=== PATIENT | male | born 1945 | race Caucasian/White ===

== ENCOUNTER 2021-12-21 13:17 | Outpatient (CLI) | payer MEDICARE ==
[2021-12-21 22:42] LABS: CHLAMYDIA TRACHOMATIS DNA NEGATIVE (NEGATIVE); NEISSERIA GONORRHOEAE DNA NEGATIVE (NEGATIVE)
[2021-12-23 04:08] LABS: RPR Non Reactive (Non Reactive)
[2021-12-23 07:10] LABS: HCV AB 0.1 s/co ratio (0.0-0.9); HIV SCREEN 4TH GENERATION Non Reactive (Non Reactive)
[2021-12-23 08:09] LABS: HSV 1 IGG TYPE SPEC 1.12 index (0.00-0.90)
== END 2021-12-21 13:18 | disposition home or self-care (01) ==
LOC: LAB.S 13:17
PROVIDERS: ATTEND Physician Assistant
DX: Z11.3 Encounter for screening for infections with a predominantly sexual mode of transmission (principal)
CPT/HCPCS: 36415; 86592; 86695; 86696; 86803; 87491; 87591; G0475; 87389; 87661

== ENCOUNTER 2022-09-09 09:47 | Day surgery (SDC) | payer MEDICARE ==
[2022-09-09] MEDS ORDERED: LACTATED RINGERS 1,000 ML IV ONE (10:09)
[2022-09-09] MEDS ORDERED: ACETAMINOPHEN 500 MG TABLET PO ONE (10:13)
[2022-09-09] MEDS ORDERED: LIDOCAINE MPF 2%-EPI 1:200000 20 ML VIAL ONE ×2 (13:03→15:08)
[2022-09-09] MEDS ORDERED: BUPIVACAINE 0.25% PF 10 ML VIAL ONE (13:54)
[2022-09-09] MEDS ORDERED: BUPIVACAINE 0.5% PF 30 ML VIAL ONE (15:08)
--- NOTE | 2022-09-09 15:19 | ANESTHESIA ---
Pre-Anesthesia VS, & Labs - Diagnosis right carpal tunnel syndrome - Procedure right carpal tunnel release Vital Signs: Temp Pulse Resp BP Pulse Ox O2 Flow Rate 36.7 C 73 18 127/93 H 100 09/09/22 10:22 09/09/22 10:22 09/09/22 10:22 09/09/22 10:22 09/09/22 10:22 Height: 5 ft 11 in Weight (kg): 88 kg Body Mass Index: 27.0 BMI Classification: Overweight - NPO >8 hours Home Medications and Allergies Home Medications: Ambulatory Orders Amlodipine Besylate [Norvasc] 5 mg PO DAILY 09/03/22 Aspirin [Aspirin EC] 81 mg PO DAILY 09/03/22 Finasteride [Proscar] 5 mg PO DAILY 09/03/22 Sildenafil Citrate [Sildenafil] 5 mg PO DAILY 09/03/22 Amlodipine Besylate [Norvasc] 5 mg PO DAILY 09/03/22 Aspirin [Aspirin EC] 81 mg PO DAILY 09/03/22 Finasteride [Proscar] 5 mg PO DAILY 09/03/22 Sildenafil Citrate [Sildenafil] 5 mg PO DAILY 09/03/22 Allergies/Adverse Reactions: Allergies Allergy/AdvReac Type Severity Reaction Status Date / Time Penicillins Allergy Anaphylaxis Verified 09/03/22 11:39 tamsulosin [From Flomax] Allergy Respiratory Verified 09/03/22 11:39 Anes History & Medical History - Anesthetic History Anesthesia Complications: reports: No previous complications - Medical History Cardiovascular: reports: Murmur, Other (aortic stenosis) Pulmonary: reports: None Gastrointestinal: reports: None Urinary: reports: Kidney stones Neuro: reports: None Musculoskeletal: reports: None Endocrine/Autoimmune: reports: None Skin: reports: None Smoking Status: Never smoker Psychosocial: reports: Alcohol (occ.) History of Cancer?: No - Surgical History General: reports: Colonoscopy Urologic: reports: Prostatic surgery Orthopedic: reports: Rotator cuff repair Exam General: Alert, Oriented x3, Cooperative, No acute distress Dental: WNL Mouth Openin Fingerbreadth Neck Mobility: Normal Mallampati classification: III Thyromental Distance: 4-6 cm Mental/Cognitive Status: Alert/Oriented X3, Normal for patient Plan Anesthesia Type: MAC Consent for Procedure(s) Verified and Reviewed: Yes Code Status: Attempt Resuscitation ASA classification: 3-Severe systemic disease Is this case an emergency?: No
[2022-09-09] MEDS ORDERED: PROPOFOL 200 MG/20 ML VIAL IVP ONE (15:25)
[2022-09-09] MEDS ORDERED: MIDAZOLAM 2 MG/2 ML VIAL ONE (15:51)
[2022-09-09] MEDS ORDERED: LIDOCAINE MPF 1%-EPI 1:200000 30 ML VIAL ID ONE ×2 (15:55)
[2022-09-09] MEDS ORDERED: BUPIVACAINE 0.5% PF 30 ML VIAL ID ONE ×2 (15:55)
--- NOTE | 2022-09-09 16:25 | OPERATIVE REPORT ---
Operative Report - General Procedure Date: 09/09/22 Planned Procedure: Right carpal tunnel release Pre-Op Diagnosis: Right carpal tunnel syndrome Procedure Performed: Right carpal tunnel release Post Op Diagnosis: Same as preoperative diagnosis - Procedure Note Primary Surgeon: Gato Escobar MD Secondary Surgeon: Consuelo CHRISTENSEN Anesthesia Provider: Lizzy tSafford CRNA Anesthesia Technique: Local, Moderate sedation Estimated Blood Loss (mL): 3 Indications: This is a 77-year-old man with numbness in the median nerve distribution of his right hand, positive clinical findings of positive Tinel and Phalen, good wrist motion. He has a history of motor and sensory abnormalities on nerve testing. His exam showed positive Tinel and Phalen with thenar atrophy suggestive of advanced carpal tunnel syndrome right wrist. He has signed informed consent for the right carpal tunnel release at my office. Findings: The median nerve did show some atrophy beneath the transverse carpal ligament. There was thinning of the median nerve. There was no other abnormalities within the carpal tunnel. Complications: None - Other Other Information/Narrative: The patient was brought to the operating room and placed in a supine position. The Right arm was placed in a arm extension table. A pneumatic tourniquet had been applied to the proximal Right arm over cast padding. The Right upper extremity was prepped and draped in a sterile manner in the usual fashion. A timeout procedure was performed by the entire operating room team and all were in agreement. 13 cc of 50-50 mixture of 2% lidocaine with epinephrine And half percent Marcaine was injected about the Right carpal tunnel using a volar approach just proximal to the wrist flexor crease, ulnar to the palmaris longus. An additional amount was injected subcutaneously. A longitudinal incision was made in line with the third webspace. The incision began just distal to the wrist flexor crease and extended for 2.5 cm. The subcutaneous tissue and palmar aponeurosis were divided in line with the incision. The transverse carpal ligament was identified proximally and was incised. A blunt obturator was inserted beneath the transverse carpal ligament. The transverse carpal ligament was then divided from proximal to distal under direct visualization. The transverse carpal ligament was divided proximally with blunt tip scissors to achieve a full release of the carpal tunnel. The median nerve was inspected. The wound was irrigated. The skin was closed with interrupted 4-0 nylon verti seb mattress suture. A bulky hand dressing was applied to the left hand and wrist with mild compression. A pneumatic tourniquet was not utilized during the procedure. Hemostasis was achieved with letter cautery. The patient tolerated procedure well A physician assistant art director was medically necessary to help with prepping and draping, positioning, protection of vital structures, assistance during the procedure including wound closure, dressing and/or splinting.
[2022-09-09] MEDS ORDERED: LACTATED RINGERS 200 ML IV ONE (16:30)
[2022-09-09] MEDS ORDERED: ACETAMINOPHEN 500 MG TABLET PO PRN (16:32)
[2022-09-09] MEDS ORDERED: oxyCODONE 5 MG TABLET PO PRN (16:32)
[2022-09-09] MEDS ORDERED: CELECOXIB 100 MG CAPSULE PO PRN (16:32)
[2022-09-09] MEDS ORDERED: ONDANSETRON ODT 4 MG TABLET TL PRN (16:32)
--- NOTE | 2022-09-09 16:34 | ANESTHESIA POST OP EVALUATION ---
Anesthesia Post Eval - Post Anesthesia Eval Vitals: Last Vital Signs Temp 36.7 C 09/09/22 10:22 Pulse 73 09/09/22 10:22 Resp 18 09/09/22 10:22 BP 127/93 H 09/09/22 10:22 Pulse Ox 100 09/09/22 10:22 O2 Flow Rate CV Function Including HR & BP: Stable Pain Control: Satisfactory Nausea & Vomiting: Negative Mental Status: Baseline Respiratory Status: Airway Patent Hydration Status: Satisfactory Anesthesia Complications: None
[2022-09-09 16:42] VITALS: BP 137/96
== END 2022-09-09 09:48 | disposition home or self-care (01) ==
LOC: SDS 09:47
PROVIDERS: ATTEND Orthopaedic Surgery
DX: G56.01 Carpal tunnel syndrome, right upper limb (principal)
CPT/HCPCS: 64721; A9270; J7120

== ENCOUNTER 2023-01-22 07:00 | Outpatient (CLI) | payer MEDICARE ==
--- NOTE | 2023-01-22 10:53 | XRAY Report ---
PROCEDURE: Chest 2 View X-Ray INDICATIONS: COVID+/HEMOPTYSIS TECHNIQUE: 2 views of the chest were acquired. COMPARISON: None. FINDINGS: Surgical changes and devices: None. Lungs and pleura: No pleural effusions or pneumothorax. Lungs are clear. Mediastinum: Mediastinal contours appear normal. Heart size is normal. Bones and chest wall: No suspicious bony lesions. Overlying soft tissues appear unremarkable. IMPRESSION: No acute cardiopulmonary process. Reviewed by: Tino Hurt MD on 01/22/2023 9:52 AM CHRIS Approved by: Tino Hurt MD on 01/22/2023 9:52 AM AKAU[place]O Station ID: [id number]
== END 2023-01-22 23:59 | disposition home or self-care (01) ==
LOC: DI.S 07:00
PROVIDERS: ATTEND Physician Assistant Medical
DX: U07.1 COVID-19 (principal)